=== PATIENT | female | born 1970 ===

== ENCOUNTER 2018-01-12 14:54 | Outpatient (CLI) | payer OTHER ==
[2018-01-13] MEDS ORDERED: LOSARTAN-HCTZ1 EAC1 PO (11:01)
[2018-01-13] MEDS ORDERED: METFORMIN HCL500 MG PO (11:01)
== END 2018-01-12 14:56 | disposition home or self-care (01) ==
LOC: EKG 14:54
DX: R93.5 Abnormal findings on diagnostic imaging of other abdominal regions, including retroperitoneum (principal); R85.618 Other abnormal cytological findings on specimens from anus

== ENCOUNTER 2018-01-15 06:36 | Day surgery (SDC) | payer OTHER ==
[~2018-01-15 06:36] MED LIST: LOSARTAN-HCTZ1 EAC1 PO; METFORMIN HCL500 MG PO
[2018-01-15] MEDS ORDERED: ZITHROMAX500 MG PO (11:09)
== END 2018-01-15 12:55 | disposition home or self-care (01) ==
LOC: CIR.AMB 06:36
DX: N84.0 Polyp of corpus uteri (principal)